=== PATIENT | male | born 1955 | race Two or more races ===

== ENCOUNTER 2024-05-29 17:57 | Inpatient (IN) | payer OTHER ==
[2024-05-29 18:39] VITALS: BMI 26.2
[2024-05-29] MEDS ORDERED: IBUPROFEN 400 MG TABLET (FP) PO PRN (19:17)
[2024-05-29] MEDS ORDERED: ONDANSETRON *ODT* 4 MG TABLET SL PRN (19:17)
[2024-05-29] MEDS ORDERED: POLYETHYLENE GLYCOL (HEALTHYLAX) 3350 17 GM PACKET PO PRN (19:17)
[2024-05-29] MEDS ORDERED: BENZONATATE 200 MG CAPSULE PO PRN (19:17)
[2024-05-29] MEDS ORDERED: guaiFENesin 600 MG TABLET.ER (FP) PO PRN (19:17)
[2024-05-29] MEDS ORDERED: MAGNESIUM HYDROX 2400MG/30ML ORAL SUSPENSION 30 ML CUP PO PRN (19:17)
[2024-05-29] MEDS ORDERED: BENZOCAINE/MENTHOL (CHLORASEPTIC ) LOZENGE MM PRN (19:17)
[2024-05-29] MEDS ORDERED: IBUPROFEN 600 MG TABLET (FP) PO PRN (19:17)
[2024-05-29] MEDS ORDERED: MAG HYDROX/AL HYDROX/SIMETH 30 ML UNIT-DOSE CUP PO PRN (19:17)
[2024-05-29] MEDS ORDERED: BISMUTH SUBSALICYLATE 524 MG/30 ML PO PRN (19:17)
[2024-05-29] MEDS ORDERED: ACETAMINOPHEN 325 MG TABLET (FP) PO PRN (19:17)
[2024-05-29] MEDS ORDERED: NALOXONE (NARCAN) HCL 4 MG/0.1 ML SPRAY NS PRN (19:17)
[2024-05-29] MEDS ORDERED: METOPROLOL TARTRATE 25 MG TABLET (FP) ONE (19:44)
[2024-05-29] MEDS: METOPROLOL TARTRATE 25 MG TABLET (FP) PO ONE (19:47)
[2024-05-29] MEDS: chlordiazePOXIDE HCL 25 MG CAPSULE PO PRN (20:47)
[2024-05-29] MEDS: THIAMINE 100 MG TABLET PO SCH (22:11)
[2024-05-29] MEDS: MELATONIN 5 MG TABLETS PO SCH (22:11)
[2024-05-30] MEDS: chlordiazePOXIDE HCL 25 MG CAPSULE PO SCH (05:50)
[2024-05-30] MEDS: PRENATAL VITAMINS W/ FOLIC ACID TABLET (FP) PO SCH (10:08)
[2024-05-30 11:34] LABS: HEMATOCRIT 36.6 % (35.4-49); HEMOGLOBIN 11.9 GM/dL (11.7-16.9); MCH 32.2 pg (25.7-33.7); MCHC 32.6 g/dl (32.0-35.9); MEAN CELL VOLUME 98.8 fl (80-96); MEAN PLT VOLUME 7.2 fl (7.5-11.1); PLATELET COUNT 250 10^3/uL (134-434); RDW 14.3 % (11.9-15.9); WHITE BLOOD COUNT 5.3 K/mm3 (4.0-10.0)
[2024-05-30 12:08] LABS: POTASSIUM 4.1 mmol/L (3.5-5.1)
[2024-05-30 12:10] LABS: ALBUMIN 4.2 g/dl (3.4-5.0); BLOOD UREA NITROGEN 14.2 mg/dL (7-18)
[2024-05-30 12:15] LABS: BILIRUBIN,TOTAL 0.8 mg/dL (0.2-1); TOT PROT 8.4 g/dl (6.4-8.2)
[2024-05-30] MEDS: amLODIPine BESYLATE 5 MG TABLET (FP) PO SCH (12:32)
[2024-05-30] MEDS: LISINOPRIL 10 MG TABLET PO ONE (13:59)
[2024-05-30] MEDS: NALTREXONE HCL 50 MG TABLET PO ONE (14:01)
[2024-05-31] MEDS ORDERED: chlordiazePOXIDE HCL 10 MG CAPSULE PO PRN
[2024-05-31] MEDS: chlordiazePOXIDE HCL 25 MG CAPSULE PO SCH (05:48)
[2024-05-31] MEDS ORDERED: diazePAM 5 MG TABLET PO PRN (10:26)
[2024-05-31] MEDS: NALTREXONE HCL 50 MG TABLET PO SCH (10:50)
[2024-05-31] MEDS: LISINOPRIL 5 MG TABLET PO SCH (10:50)
[2024-05-31] MEDS: diazePAM 5 MG TABLET PO SCH (10:50)
[2024-05-31] MEDS: LOPERAMIDE HCL 2 MG CAPSULE PO PRN (11:01)
[2024-05-31] MEDS: levETIRAcetam 500 MG TABLET (FP) PO ONE (11:56)
[2024-05-31] MEDS: LACTULOSE 20 GM/30 ML UDC (FOR ORAL USE ONLY) PO SCH (13:58)
[2024-05-31] MEDS: diazePAM 5 MG TABLET PO ONE (14:32)
[2024-05-31] MEDS: SODIUM CHLORIDE 500 ML IV STA (16:33)
[2024-05-31 18:48] VITALS: BP 130/62; PULSE 126; RESP 17; TEMP 98
[2024-06-01] MEDS ORDERED: chlordiazePOXIDE HCL 10 MG CAPSULE PO SCH (05:00)
[2024-06-01] MEDS ORDERED: diazePAM 5 MG TABLET PO SCH (06:00)
[2024-06-01] MEDS ORDERED: levETIRAcetam 500 MG TABLET (FP) PO SCH (10:00)
[2024-06-02] MEDS ORDERED: chlordiazePOXIDE HCL 10 MG CAPSULE PO SCH (05:00)
[2024-06-02] MEDS ORDERED: diazePAM 5 MG TABLET PO SCH (06:00)
[2024-06-03] MEDS ORDERED: chlordiazePOXIDE HCL 10 MG CAPSULE PO ONE (05:00)
[2024-06-03] MEDS ORDERED: diazePAM 5 MG TABLET PO ONE (06:00)
== END 2024-06-01 02:19 | disposition short-term general hospital (02) | DRG 897 ==
LOC: YASAS 17:57 → Y6N 19:39
PROVIDERS: ADMIT Allergy & Immunology; ATTEND Allergy & Immunology
PROC: HZ2ZZZZ Detoxification Services for Substance Abuse Treatment (ICD-10-PCS; principal; 2024-05-29)
DX: F10.230 Alcohol dependence with withdrawal, uncomplicated (principal); F10.282 Alcohol dependence with alcohol-induced sleep disorder; I10 Essential (primary) hypertension; R53.1 Weakness; R26.89 Other abnormalities of gait and mobility; R74.01 Elevation of levels of liver transaminase levels; Z87.891 Personal history of nicotine dependence
CPT/HCPCS: 36415; 80053; 80305; 80307; 82140; 85027; 86780; 93005; 93010

== ENCOUNTER 2024-05-31 20:34 | Inpatient (IN) | payer OTHER ==
[2024-05-31] MEDS ORDERED: ACETAMINOPHEN INJECTION 100 ML ONE (22:21)
[2024-05-31 22:57] LABS: VENOUS BASE EXCESS -3.6 mmol/L (-2-2); VENOUS O2 SATURATION 92.5 % (70-80); VENOUS PCO2 28.3 mmHg (38-52); VENOUS PH 7.448 (7.310-7.410)
[2024-05-31 23:02] LABS: BASO % 0.4 % (0-2.0); EOS % 1.5 % (0-4.5); HEMATOCRIT 34.6 % (35.4-49); HEMOGLOBIN 11.7 GM/dL (11.7-16.9); LYMPH % 7.9 % (8-40); MCH 33.2 pg (25.7-33.7); MCHC 33.8 g/dl (32.0-35.9); MEAN CELL VOLUME 98.1 fl (80-96); MEAN PLT VOLUME 7.2 fl (7.5-11.1); NEUT % 84.2 % (42.8-82.8); PLATELET COUNT 208 10^3/uL (134-434); RBC 3.53 M/mm3 (4.00-5.60); RDW 14.4 % (11.9-15.9); WHITE BLOOD COUNT 6.7 K/mm3 (4.0-10.0)
[2024-05-31] MEDS ORDERED: diazePAM CARPU-JECT 10 MG/2 ML DISP.SYRIN ONE (23:12)
[2024-05-31 23:13] LABS: POTASSIUM 3.6 mmol/L (3.5-5.1)
[2024-05-31 23:15] LABS: ALBUMIN 3.8 g/dl (3.4-5.0); BLOOD UREA NITROGEN 20.6 mg/dL (7-18); CALCIUM 9.2 mg/dL (8.5-10.1)
[2024-05-31 23:19] LABS: CREATININE 1.2 mg/dL (0.55-1.3); INR 1.09 (0.83-1.09)
[2024-05-31 23:20] LABS: BILIRUBIN,TOTAL 1.2 mg/dL (0.2-1); TOT PROT 7.6 g/dl (6.4-8.2)
[2024-05-31 23:22] LABS: ACTIVATED PTT 25.3 SECONDS (25.2-36.5)
[2024-05-31] MEDS: ACETAMINOPHEN 1000 MG/100 ML BAG IVPB ONE (23:29)
[2024-05-31] MEDS: SODIUM CHLORIDE 0.9% 500 ML INFUS.BAG IV ONE (23:30)
[2024-05-31] MEDS: diazePAM CARPU-JECT 10 MG/2 ML DISP.SYRIN IVPUSH ONE (23:30)
[2024-06-01 00:08] LABS: EPI CELLS 18 /uL (0-25.1); HYALINE CASTS 1 /uL (0-3.1); URINE APPEARANCE CLEAR; URINE BACTERIA 9 /uL (0-1359); URINE BILIRUBIN 1+ (NEGATIVE); URINE COLOR DK YELLOW; URINE GLUCOSE (UA) NEGATIVE (NEGATIVE); URINE KETONE TRACE (NEGATIVE); URINE LEUK ESTERASE NEGATIVE (NEGATIVE); URINE NITRITE NEGATIVE (NEGATIVE); URINE PROTEIN 1+ (NEGATIVE); URINE RBC 25 /uL (0-23.9); URINE UROBILINOGEN 0.2 mg/dL (0.2-1.0); URINE WBC 25 /uL (0-25.8)
[2024-06-01] MEDS ORDERED: CEFTRIAXONE 1 G/50 ML PREMIX 50 ML IVPB ONE (01:43)
[2024-06-01] MEDS: CEFTRIAXONE 1 GM in DEXTROSE 5%-WATER - 50 ML IVPB ONE (02:22)
[2024-06-01] MEDS ORDERED: LORazepam 2 MG/ML SDV VIAL ONE (04:15)
[2024-06-01] MEDS: AZITHROMYCIN IVPB 500 MG in DEXTROSE 5%-WATER - 250 ML IVPB ONE (04:21)
[2024-06-01 05:10] VITALS: BMI 26.0
[2024-06-01] MEDS ORDERED: LORazepam 1 MG TABLET PO PRN ×2 (05:39→15:26)
[2024-06-01] MEDS ORDERED: THIAMINE 100 MG TABLET PO SCH ×2 (06:45→10:00)
[2024-06-01] MEDS: DEXTROSE 5%-LACTATED RINGERS 1,000 ML IV SCH (07:50)
[2024-06-01] MEDS: THIAMINE HCL 200 MG/2 ML VIAL IVPB SCH (09:39)
[2024-06-01] MEDS: DOXYCYCLINE HYCLATE 100 MG CAPSULE PO SCH (09:39)
[2024-06-01] MEDS: FOLIC ACID 1 MG TABLET (FP) PO SCH (09:40)
[2024-06-01] MEDS: LISINOPRIL 5 MG TABLET PO SCH (09:40)
[2024-06-01] MEDS: amLODIPine BESYLATE 5 MG TABLET (FP) PO SCH (09:40)
[2024-06-01] MEDS: ENOXAPARIN NA (PORCINE) 40 MG/0.4 ML DISP.SYRIN SQ SCH (09:40)
[2024-06-01] MEDS ORDERED: LACTULOSE 20 GM/30 ML UDC (FOR ORAL USE ONLY) PO SCH (10:00)
[2024-06-01] MEDS ORDERED: FOLIC ACID 1 MG TABLET (FP) PO SCH (10:00)
[2024-06-01 10:09] LABS: HEMATOCRIT 35.8 % (35.4-49); HEMOGLOBIN 11.9 GM/dL (11.7-16.9); MCH 32.6 pg (25.7-33.7); MCHC 33.1 g/dl (32.0-35.9); MEAN CELL VOLUME 98.4 fl (80-96); MEAN PLT VOLUME 7.3 fl (7.5-11.1); PLATELET COUNT 221 10^3/uL (134-434); RBC 3.64 M/mm3 (4.00-5.60); WHITE BLOOD COUNT 5.8 K/mm3 (4.0-10.0)
[2024-06-01 11:14] LABS: SODIUM 142 mmol/L (136-145)
[2024-06-01 11:18] LABS: ALBUMIN 3.5 g/dl (3.4-5.0); BLOOD UREA NITROGEN 13.2 mg/dL (7-18); GLUCOSE,RANDOM 104 mg/dL (74-106); MAGNESIUM 1.8 mg/dL (1.8-2.4)
[2024-06-01 11:19] LABS: CO2 25 mmol/L (21-32)
[2024-06-01] MEDS: LORazepam 1 MG TABLET PO SCH ×2 (11:20→17:55)
[2024-06-01 11:21] LABS: CREATININE 0.9 mg/dL (0.55-1.3); PHOSPHOROUS 2.6 mg/dL (2.5-4.9); SGOT/AST 660 U/L (15-37); SGPT/ALT 269 U/L (13-61)
[2024-06-01 11:22] LABS: ANION GAP 12 mmol/L (4-13); CHLORIDE 104 mmol/L (98-107); POTASSIUM 2.8 mmol/L (3.5-5.1)
[2024-06-01 11:23] LABS: ALK PHOS 62 U/L (45-117); TOT PROT 6.9 g/dl (6.4-8.2)
[2024-06-01 11:42] LABS: CHOLESTEROL 213 mg/dL (50-200); LDL CHOLESTEROL (ONLY SJRH) 75 mg/dL (5-100)
[2024-06-01 11:47] LABS: HDL CHOLESTEROL 108 mg/dL (40-60)
[2024-06-01] MEDS ORDERED: THIAMINE HCL 200 MG/2 ML VIAL IVPB SCH (14:00)
[2024-06-01] MEDS: LACTULOSE 20 GM/30 ML UDC (FOR ORAL USE ONLY) PO SCH (14:45)
[2024-06-01] MEDS: POTASSIUM CHLORIDE ORAL LIQUID 20 MEQ/15 ML PO ONE (15:45)
[2024-06-01 16:44] LABS: INR 1.17 (0.83-1.09); PROTHROMBIN TIME (PATIENT) 12.7 SEC (9.7-13.0)
[2024-06-01] MEDS: POTASSIUM CHLORIDE ORAL LIQUID 20 MEQ/15 ML PO SCH (21:26)
[2024-06-02] MEDS: LORazepam 0.5 MG TABLET PO SCH (05:29)
[2024-06-02 09:39] LABS: BASO % 0.8 % (0-2.0); EOS % 2.7 % (0-4.5); HEMATOCRIT 36.1 % (35.4-49); LYMPH % 16.1 % (8-40); MCH 32.8 pg (25.7-33.7); MCHC 33.2 g/dl (32.0-35.9); MEAN CELL VOLUME 98.8 fl (80-96); MEAN PLT VOLUME 7.4 fl (7.5-11.1); MONO % 15.1 % (3.8-10.2); NEUT % 65.3 % (42.8-82.8); PLATELET COUNT 222 10^3/uL (134-434); RBC 3.66 M/mm3 (4.00-5.60); RDW 14.2 % (11.9-15.9); WHITE BLOOD COUNT 5.5 K/mm3 (4.0-10.0)
[2024-06-02 09:45] LABS: INR 1.17 (0.83-1.09); PROTHROMBIN TIME (PATIENT) 12.9 SEC (9.7-13.0)
[2024-06-02 10:01] LABS: POTASSIUM 3.4 mmol/L (3.5-5.1)
[2024-06-02 10:04] LABS: ALBUMIN 3.5 g/dl (3.4-5.0); CALCIUM 9.1 mg/dL (8.5-10.1)
[2024-06-02 10:05] LABS: BLOOD UREA NITROGEN 6.6 mg/dL (7-18); MAGNESIUM 1.2 mg/dL (1.8-2.4)
[2024-06-02 10:08] LABS: CREATININE 0.8 mg/dL (0.55-1.3)
[2024-06-02 10:09] LABS: BILIRUBIN,TOTAL 0.8 mg/dL (0.2-1); TOT PROT 7.1 g/dl (6.4-8.2)
[2024-06-02] MEDS: MAGNESIUM 2GM/50ML STERILE WATER IVPB IVPB ONE (11:30)
[2024-06-02] MEDS: POTASSIUM CHLORIDE ORAL LIQUID 20 MEQ/15 ML PO ONE (14:04)
[2024-06-02] MEDS: NAPH,MB-DB/K PH,MBDB POWDER PACKET PO SCH (14:04)
[2024-06-03] MEDS ORDERED: LORazepam 1 MG TABLET PO PRN (00:49)
[2024-06-03] MEDS ORDERED: LORazepam 2 MG TABLET PO SCH (00:50)
[2024-06-03] MEDS: diazePAM CARPU-JECT 10 MG/2 ML DISP.SYRIN IVPUSH ONE (02:48)
[2024-06-03] MEDS ORDERED: LORazepam 1 MG TABLET PO SCH (05:00)
[2024-06-03] MEDS: LORazepam 1 MG TABLET PO SCH (05:17)
[2024-06-03] MEDS: LACTULOSE 20 GM/30 ML UDC (FOR ORAL USE ONLY) PO SCH (09:13)
[2024-06-03 09:32] LABS: HEMATOCRIT 34.7 % (35.4-49); HEMOGLOBIN 11.8 GM/dL (11.7-16.9); MCH 33.6 pg (25.7-33.7); MCHC 34.1 g/dl (32.0-35.9); MEAN CELL VOLUME 98.5 fl (80-96); MEAN PLT VOLUME 7.2 fl (7.5-11.1); PLATELET COUNT 237 10^3/uL (134-434); RBC 3.52 M/mm3 (4.00-5.60); RDW 14.2 % (11.9-15.9)
[2024-06-03 10:00] LABS: POTASSIUM 3.3 mmol/L (3.5-5.1)
[2024-06-03 10:20] LABS: ALBUMIN 3.2 g/dl (3.4-5.0); BLOOD UREA NITROGEN 6.9 mg/dL (7-18)
[2024-06-03 10:22] LABS: CREATININE 0.9 mg/dL (0.55-1.3)
[2024-06-03 10:23] LABS: MAGNESIUM 1.5 mg/dL (1.8-2.4); PHOSPHOROUS 2.6 mg/dL (2.5-4.9)
[2024-06-03 10:24] LABS: BILIRUBIN,TOTAL 0.7 mg/dL (0.2-1); TOT PROT 6.6 g/dl (6.4-8.2)
[2024-06-03] MEDS: MAGNESIUM 2GM/50ML STERILE WATER IVPB IVPB ONE (10:53)
[2024-06-03 11:05] LABS: CALCIUM 9.4 mg/dL (8.5-10.1)
[2024-06-03] MEDS: MAGNESIUM 1GM/D5W 100ML - 100 ML IVPB IVPB ONE (16:56)
[2024-06-04] MEDS ORDERED: LORazepam 0.5 MG TABLET PO PRN ×2
[2024-06-04] MEDS ORDERED: LORazepam 0.5 MG TABLET PO SCH (05:00)
[2024-06-04] MEDS: LACTULOSE 20 GM/30 ML UDC (FOR ORAL USE ONLY) PO SCH (10:07)
[2024-06-04 10:32] LABS: POTASSIUM 4.7 mmol/L (3.5-5.1)
[2024-06-04 10:36] LABS: CALCIUM 9.6 mg/dL (8.5-10.1)
[2024-06-04 10:37] LABS: BLOOD UREA NITROGEN 7.7 mg/dL (7-18); MAGNESIUM 1.7 mg/dL (1.8-2.4)
[2024-06-04 10:38] LABS: ALBUMIN 3.4 g/dl (3.4-5.0)
[2024-06-04 10:40] LABS: PHOSPHOROUS 2.7 mg/dL (2.5-4.9)
[2024-06-04 10:41] LABS: CREATININE 0.9 mg/dL (0.55-1.3)
[2024-06-04 10:42] LABS: BILIRUBIN,TOTAL 0.6 mg/dL (0.2-1); TOT PROT 7.2 g/dl (6.4-8.2)
[2024-06-04] MEDS ORDERED: MAGNESIUM 2GM/50ML STERILE WATER IVPB IVPB ONE (10:53)
[2024-06-04] MEDS: THIAMINE 100 MG TABLET PO SCH (13:05)
[2024-06-04] MEDS: MAGNESIUM 2GM/50ML STERILE WATER IVPB IVPB ONE (13:06)
[2024-06-05] MEDS ORDERED: LORazepam 0.5 MG TABLET PO ONE (05:00)
[2024-06-05] MEDS ORDERED: LORazepam 0.5 MG TABLET ONE (05:33)
[2024-06-05] MEDS: LORazepam 1 MG TABLET PO SCH (06:04)
[2024-06-05] MEDS: MAGNESIUM 2GM/50ML STERILE WATER IVPB IVPB ONE (08:55)
[2024-06-05 08:59] LABS: HEMATOCRIT 36.3 % (35.4-49); HEMOGLOBIN 11.9 GM/dL (11.7-16.9); MCH 32.6 pg (25.7-33.7); MCHC 32.7 g/dl (32.0-35.9); MEAN CELL VOLUME 99.6 fl (80-96); PLATELET COUNT 332 10^3/uL (134-434); RBC 3.64 M/mm3 (4.00-5.60); RDW 13.8 % (11.9-15.9)
[2024-06-05 09:03] LABS: WHITE BLOOD COUNT 6.6 K/mm3 (4.0-10.0)
[2024-06-05 09:20] LABS: POTASSIUM 4.1 mmol/L (3.5-5.1)
[2024-06-05 09:30] LABS: ALBUMIN 3.4 g/dl (3.4-5.0); CALCIUM 9.7 mg/dL (8.5-10.1); MAGNESIUM 1.7 mg/dL (1.8-2.4)
[2024-06-05 09:31] LABS: BLOOD UREA NITROGEN 7.5 mg/dL (7-18)
[2024-06-05 09:33] LABS: CREATININE 0.9 mg/dL (0.55-1.3)
[2024-06-05 09:35] LABS: BILIRUBIN,TOTAL 0.6 mg/dL (0.2-1); PHOSPHOROUS 3.9 mg/dL (2.5-4.9); TOT PROT 6.9 g/dl (6.4-8.2)
[2024-06-05 10:12] LABS: EOS % 2.7 % (0-4.5); LYMPH % 25.2 % (8-40); NEUT % 51.1 % (42.8-82.8)
[2024-06-05] MEDS ORDERED: THIAMINE HCL 200 MG/2 ML VIAL IVPB SCH (10:15)
[2024-06-05] MEDS ORDERED: THIAMINE HCL 200 MG/2 ML VIAL IVPB ONE (13:17)
[2024-06-05] MEDS: THIAMINE HCL 200 MG/2 ML VIAL IVPB ONE (13:34)
[2024-06-06] MEDS ORDERED: LORazepam 0.5 MG TABLET PO PRN
[2024-06-06] MEDS: THIAMINE HCL 200 MG/2 ML VIAL IVPB ONE (05:52)
[2024-06-06] MEDS: LORazepam 0.5 MG TABLET PO SCH (05:54)
[2024-06-06] MEDS ORDERED: THIAMINE HCL 200 MG/2 ML VIAL IVPB ONE (06:00)
[2024-06-06 09:50] LABS: HEMATOCRIT 35.8 % (35.4-49); HEMOGLOBIN 12.1 GM/dL (11.7-16.9); MCHC 33.9 g/dl (32.0-35.9); MEAN CELL VOLUME 100.1 fl (80-96); MEAN PLT VOLUME 6.9 fl (7.5-11.1); PLATELET COUNT 361 10^3/uL (134-434); RBC 3.57 M/mm3 (4.00-5.60); RDW 13.9 % (11.9-15.9); WHITE BLOOD COUNT 6.8 K/mm3 (4.0-10.0)
[2024-06-06 11:03] LABS: POTASSIUM 4.1 mmol/L (3.5-5.1)
[2024-06-06 11:08] LABS: BLOOD UREA NITROGEN 7.6 mg/dL (7-18); CALCIUM 9.8 mg/dL (8.5-10.1)
[2024-06-06 11:09] LABS: ALBUMIN 3.6 g/dl (3.4-5.0); MAGNESIUM 1.8 mg/dL (1.8-2.4)
[2024-06-06 11:12] LABS: PHOSPHOROUS 3.9 mg/dL (2.5-4.9)
[2024-06-06 11:13] LABS: BILIRUBIN,TOTAL 0.6 mg/dL (0.2-1); TOT PROT 7.4 g/dl (6.4-8.2)
[2024-06-07] MEDS ORDERED: LORazepam 0.5 MG TABLET PO ONE (05:00)
[2024-06-07 11:08] VITALS: BP 100/64; PULSE 102; RESP 20; TEMP 98.6
== END 2024-06-07 12:31 | disposition other institution (70) | DRG 641 ==
LOC: JER 20:34 → JERBED 06-01 02:45 → J6S 06-01 05:01
PROVIDERS: ADMIT Student in an Organized Health Care Education/Training Program; ATTEND Internal Medicine
DX: E51.2 Wernicke's encephalopathy (principal); F10.239 Alcohol dependence with withdrawal, unspecified; K70.10 Alcoholic hepatitis without ascites; R29.898 Other symptoms and signs involving the musculoskeletal system; I10 Essential (primary) hypertension; E78.5 Hyperlipidemia, unspecified
CPT/HCPCS: 0241U-QW; 36415; 70450-TC; 71045-TC-FY; 72125-TC; 72170-TC-FY; 76705-TC; 80053; 80061; 81003; 82140; 82803; 83036; 83605; 83735; 84100; 84484; 85025; 85027; 85610; 85730; 86850; 86900; 86901; 87040; 87086; 87899; 93005; 93010; 97116-GP; 99285-25; J0131